=== PATIENT | female | born 1945 | race Asian ===

== ENCOUNTER 2019-01-19 20:29 | Emergency (ER) | payer OTHER, MEDICAID ==
[~2019-01-19] VITALS: Ht 160 cm; Wt 92.7 kg
[2019-01-19 20:40] VITALS: Ht 160 cm; Wt 92.7 kg
[2019-01-20 02:11] VITALS: BP 115/66
== END 2019-01-20 02:11 | disposition home or self-care (01) ==
LOC: ED 20:29
DX: M54.5 Low back pain (principal); I10 Essential (primary) hypertension; E11.9 Type 2 diabetes mellitus without complications; M19.90 Unspecified osteoarthritis, unspecified site; J45.909 Unspecified asthma, uncomplicated
CPT/HCPCS: J1885